=== PATIENT | female | born 1990 | race African-American/Black ===

== ENCOUNTER 2017-04-20 10:15 | Emergency (ER) | payer SELFPAY ==
--- NOTE | 2017-04-20 11:36 | ER Document Report ---
ED Medical Screen (RME) - General TRAVEL OUTSIDE OF THE [place] IN LAST 30 DAYS: No - General Chief Complaint: Back Pain Stated Complaint: BACK PAIN Time Seen by Provider: 04/20/17 11:30 Notes: 26-year-old female patient complains of low back pain for the past 5-6 days. She reports pain originally started about 6-7 weeks ago after playing on the floor with her nieces. It got better over time with stretching and using a heating pad for about a week. She reports lifting at work possibly made it start back up 5-6 days ago. The pain has been getting worse over the past few days. I have greeted and performed a rapid initial assessment of this patient. A comprehensive ED assessment and evaluation of the patient, analysis of test results and completion of the medical decision making process will be conducted by additional ED providers. (JCARLOS FIELDS) - Related Data Allergies/Adverse Reactions: No Known Allergies Allergy (Verified 04/20/17 10:17) Home Medications: Current Home Medications Albuterol Sulfate [Proair Respiclick] 90 mcg IH PRN PRN 04/20/17 [History] Past Medical History - Social History Chew tobacco use (# tins/day): No Frequency of alcohol use: Rare Drug Abuse: None Family history: CAD, DM, Hyperlipidemia Pulmonary Medical History: Reports: Hx Asthma Renal/ Medical History: Denies: Hx Peritoneal Dialysis Past Surgical History: Reports: Hx Cholecystectomy, Hx Tonsillectomy - Immunizations Immunizations up to date: Yes Hx Diphtheria, Pertussis, Tetanus Vaccination: Yes - Vital signs Vitals: Temp Pulse Resp BP Pulse Ox 97.7 F 96 16 124/68 99 04/20/17 10:22 04/20/17 10:22 04/20/17 10:22 04/20/17 10:22 04/20/17 10:22 - Vital Signs Vital signs: Temp Pulse Resp BP Pulse Ox 97.7 F 96 16 124/68 99 04/20/17 10:22 04/20/17 10:22 04/20/17 10:22 04/20/17 10:22 04/20/17 10:22 - Laboratory Laboratory results interpreted by me: 04/20/17 11:40 Urine Urobilinogen 2.0 H Urine Ascorbic Acid 40 H Doctor's Discharge - Discharge Clinical Impression: Low back pain Qualifiers: Chronicity: acute Back pain laterality: left Sciatica presence: with sciatica Sciatica laterality: sciatica of left side Qualified Code(s): M54.42 - Lumbago with sciatica, left side Strain of lumbar paraspinal muscle Qualifiers: Encounter type: initial encounter Qualified Code(s): S39.012A - Strain of muscle, fascia and tendon of lower back, initial encounter Condition: Good Disposition: HOME, SELF-CARE Instructions: Ice Packs ([facility]), Low Back Pain ([facility]), Muscle Strain ([facility]), Pain Medication Injection ([facility]), Warm Packs ([facility]) Additional Instructions: take meds as prescribed ice or heat packs to back no heavy lifting follow up with your PCP Wednesday for recheck if not better return as needed Prescriptions: Cyclobenzaprine HCl [Flexeril 5 mg Tablet] 5 mg PO TID #15 tablet Ibuprofen 800 mg PO TID PRN #30 tablet PRN Reason: Forms: Return to Work
[2017-04-20] MEDS ORDERED: KETOROLAC TROMETHAMINE 60 MG/2 ML SDV IM ONE (12:29)
[2017-04-20] MEDS ORDERED: DEXAMETHASONE SOD PHOS INJ 10 MG/1 ML VIAL IM ONE (12:29)
[2017-04-20 12:43] LABS: APPEARANCE,URINE SLIGHTLY-CLOUDY; BILIRUBIN,URINE NEGATIVE (NEGATIVE); CALCIUM OXALATE CRYSTALS,URINE FEW /HPF; GLUCOSE, URINE NEGATIVE (NEGATIVE); KETONES,URINE NEGATIVE (NEGATIVE); LEUKOCYTE ESTERASE,URINE NEGATIVE (NEGATIVE); NITRITE,URINE NEGATIVE (NEGATIVE); PROTEIN,URINE NEGATIVE (NEGATIVE); URINE SPECIFIC GRAVITY 1.033
[2017-04-20 13:14] VITALS: BP 110/55
== END 2017-04-20 13:09 | disposition home or self-care (01) ==
LOC: ER 10:15
DX: S39.012A Strain of muscle, fascia and tendon of lower back, initial encounter (principal); X58.XXXA Exposure to other specified factors, initial encounter; M54.42 Lumbago with sciatica, left side; J45.909 Unspecified asthma, uncomplicated
CPT/HCPCS: 99283; 96372; 81025; 81001; J1885; J1100